=== PATIENT | male | born 1960 | race Caucasian/White ===

== ENCOUNTER 2020-07-27 14:50 | Outpatient (CLI) | payer MEDICARE, SELFPAY ==
[2020-07-27 15:30] VITALS: BMI 36.2
[2020-07-27 16:54] LABS: Microscopic, Urine URINE MICROSCOPIC (MICROSCOPIC)
[2020-07-27 17:04] LABS: Appearance,Urine CLEAR (Clear); Bilirubin,Urine Negative (Negative); Blood, Urine 1+ (Negative); Color,Urine YELLOW (Yellow); Glucose,Urine (UA) Negative (Negative); Ketones,Urine Negative (Negative); Leukocyte Esterase,Urine Negative (Negative); Nitrate,Urine Negative (Negative); PH,Urine 6.5 (5.0-8.5); Protein,Urine 1+ (Negative); Specific Gravity, Urine 1.025 (1.005-1.030)
[2020-07-27 17:09] LABS: Amorphous Sediment,Urine 1+ /lpf; Squamous Epithelial Cell,Urine Occasional #/hpf (0-5); WBC,Urine Occasional #/hpf (0-3)
[2020-07-27 17:12] LABS: Chloride 104 mmol/L (98-107); Potassium 4.2 mmoL/L (3.5-5.1); Sodium 140 mmol/L (136-145)
[2020-07-27 17:14] LABS: Basophils % 0.6 % (0.1-2.0); Blood Urea Nitrogen 12 mg/dl (9-20); Creatinine Clearance Estimated 129 mL/min (50-200); Eosinophils # 0.3 K/mm3 (0.0-0.4); Eosinophils % 4.3 % (0.1-12.0); Estimated Glomerular Filt Rate 98 ml/min (>60); GFR (African American) 119 ML/MIN (>60); Hematocrit 42.6 % (42.0-52.0); Lymphocytes # 1.5 K/mm3 (0.7-4.5); Lymphocytes % 22.8 % (10-50); Mean Corpuscular HGB Conc 32.9 g/dL (31.8-35.4); Mean Corpuscular Hemoglobin 28.3 pg (27.0-31.2); Monocytes # 0.4 K/mm3 (0.1-1.0); Monocytes % 5.9 % (1.7-9.3); Neutrophils # 4.3 K/mm3 (1.8-7.8); Neutrophils % 66.4 % (37.0-80.0); Platelet Count 145 K/mm3 (142-424); Red Blood Count 4.95 M/mm3 (4.60-6.20); Red Cell Distribution Width 17.8 % (11.5-17.5); White Blood Count 6.5 K/mm3 (4.8-10.8)
[2020-07-27 17:15] LABS: Alanine Aminotransferase 25 U/L (12-78); Albumin/Globulin Ratio 1.2 (1.1-1.8); Alkaline Phosphatase 118 U/L (38-126); Aspartate Amino Transferase 35 U/L (17-59); Bilirubin,Total 0.8 mg/dl (0.2-1.3); Calcium 9.1 mg/dl (8.4-10.2); Globulin 3.3 g/dL (1.3-3.2); Glucose 78 mg/dl (74-100); Total Protein,Serum 7.3 g/dl (6.3-8.2)
[2020-07-27 17:46] LABS: Thyroid Stimulating Hormone 0.51 uIU/mL (0.465-4.68)
[2020-07-27 22:35] LABS: Anion Gap 13.2 mEq/L (5-15); Carbon Dioxide 27 mmol/L (22.0-30.0)
== END 2020-07-27 16:00 | disposition home or self-care (01) ==
LOC: LAB 14:58
PROVIDERS: Visit Provider Family Medicine
DX: R60.9 Edema, unspecified (principal); R39.81 Functional urinary incontinence; R26.2 Difficulty in walking, not elsewhere classified
CPT/HCPCS: 80053; 81001; 84443; 85025

== ENCOUNTER 2020-10-19 13:00 | Emergency (ER) | payer MEDICARE, SELFPAY ==
[2020-10-19 13:00] VITALS: BP 156/105; PULSE 76; RESP 16; TEMP 36.8; O2SAT 94; BMI 38.0
--- NOTE | 2020-10-19 13:24 | XR_ITS ---
PROCEDURE: XR CHEST PORTABLE CLINICAL HISTORY: weakness COMPARISON: No exams were available for comparison FINDINGS: There is mild cardiomegaly without failure. Increased markings are present in the right lower lung zone suspicious for an area of infiltrate. No acute bony findings. There is an area of increased density in the left paraspinal region at T10-T11 and may represent a prominent osteophyte. IMPRESSION: Patchy right lower lobe infiltrate Dictated by: Sourav Blum MD 10/19/2020 15:37 Sourav Blum MD in [place] 10/19/2020 15:37
--- NOTE | 2020-10-19 13:26 | PC.NURSE ---
pt yelling at family in pt room and swearing at staff. pt asked to keep his voice down and redirected. pt stated i didnt even want to come here i just wanted to be helped in my car by EMS but they brought me here
[2020-10-19 13:33] LABS: Basophils % 0.4 % (0.1-2.0); Eosinophils # 0.3 K/mm3 (0.0-0.4); Eosinophils % 3.3 % (0.1-12.0); Hematocrit 45.2 % (42.0-52.0); Hemoglobin 14.6 g/dL (14.1-18.0); Lymphocytes # 1.2 K/mm3 (0.7-4.5); Lymphocytes % 16.3 % (10-50); Mean Corpuscular HGB Conc 32.2 g/dL (31.8-35.4); Mean Corpuscular Hemoglobin 29.3 pg (27.0-31.2); Monocytes # 0.4 K/mm3 (0.1-1.0); Monocytes % 4.9 % (1.7-9.3); Neutrophils # 5.7 K/mm3 (1.8-7.8); Platelet Count 185 K/mm3 (142-424); Red Blood Count 4.97 M/mm3 (4.60-6.20); Red Cell Distribution Width 17.4 % (11.5-17.5); White Blood Count 7.6 K/mm3 (4.8-10.8)
[2020-10-19 13:34] LABS: Chloride 103 mmol/L (98-107); Sodium 140 mmol/L (136-145)
--- NOTE | 2020-10-19 13:34 | HMH.EDGENADL ---
ED Disposition Clinical Impression: Weakness Disposition: Home, Self-Care Condition on Discharge: Fair Additional Instructions: Bactrim as prescribed. Follow-up with Dr. Azar in his office, call tomorrow to make appointment. He will continue to work on placement in a rehab facility. Follow-up urine culture results with Dr. Azar when you see him in the office. Prescriptions: Sulfamethoxazole/Trimethoprim [Bactrim DS tablet] 1 each PO BID #20 tab Transmission Status: Received by [facility] Referrals: Jeffrey Azar MD [Primary Care Provider] - - Critical Care Critical Care Time: No Attestation: On , the high probability of a clinically significant, sudden or life threatening deterioration of the following system(s) required my full and direct attention, intervention and personal management. The time I documented below is in addition to time spent performing reported procedures but includes the following listed in this critical care notation. Medical Decision Making - Medical Records Medical records reviewed: Yes: I reviewed the patient's medical records. MR Comment: Reviewed most recent office visit to Dr. Azar, detailing same complaints and symptoms at that time - Rene Inquiry Pt receiving controlled substance: No Vital Signs: 10/19/20 13:00 10/19/20 14:26 10/19/20 15:13 Temperature 98.2 F Temperature Source Oral Pulse Rate [Left Radial] 76 97 H 88 Respiratory Rate 16 Blood Pressure [Right Arm] 156/105 H 188/100 H 179/98 H Blood Pressure Mean [Right Arm] 122 129 125 Blood Pressure Source [Right Arm] Automatic Cuff Automatic Cuff Automatic Cuff Blood Pressure Position [Right Arm] Sitting Sitting Sitting 02 Sat by Pulse Oximetry 94 L 96 Oxygen Delivery Method Room Air Room Air - Lab Data Lab Results 10/19/20 13:16: WBC 7.6, RBC 4.97, Hgb 14.6, Hct 45.2, MCV 91.0, MCH 29.3, MCHC 32.2, RDW 17.4, Plt Count 185, MPV 8.0, Neut % (Auto) 75.0, Lymph % (Auto) 16.3, Colbert % (Auto) 4.9, Eos % (Auto) 3.3, Baso % (Auto) 0.4, Neut # (Auto) 5.7, Lymph # (Auto) 1.2, Colbert # (Auto) 0.4, Eos # (Auto) 0.3, Baso # (Auto) 0.0 10/19/20 13:16: Sodium 140, Potassium 3.5, Chloride 103, Carbon Dioxide 31 H, Anion Gap 9.5, BUN 12, Creatinine 0.90, Estimated Creat Clear 139, Estimated GFR 86, Est GFR ( Amer) 104, Glucose 101 H, Calcium 9.4, Total Bilirubin 0.7, AST 29, ALT 20, Alkaline Phosphatase 167 H, Troponin I < 0.01, Total Protein 8.0, Albumin 4.1, Globulin 3.9 H, Albumin/Globulin Ratio 1.1 10/19/20 15:01: Urine Color Yellow, Urine Appearance Cloudy, Urine pH 8.0, Ur Specific [place] 1.020, Urine Protein 2+, Urine Glucose (UA) Negative, Urine Ketones Negative, Urine Blood Negative, Urine Nitrate Positive, Urine Bilirubin Negative, Urine Urobilinogen >=8.0, Ur Leukocyte Esterase 1+ A, Urine RBC None, Urine WBC 20-50, Ur Squamous Epith Cells Occasional, Triple Phos Crystals 2+, Urine Bacteria 3+ Result diagrams: 10/19/20 13:16 10/19/20 13:16 Orders (Tests/Meds): ORDERS Category Date Time Status Urine Culture Stat Micro 10/19/20 15:01 Received - Physician Consults Physician Consulted: Dr. Azar Time: 14:07 Reason -: Pt condition Comment/Response: Have patient seen by care management, care management to text him after their evaluation. He would prefer the patient be admitted for placement, he has been pursuing this for some time. Additional Consult: Care sharif Bills Time: 14:48 Reason -: Pt condition Comment/Response: Seen by care management. The patient and are very selective about rehab facilities that they would approve. There are only 2 but they are interested in. 1 is not accepting new patients and she will not be able to obtain a decision from the other one today. She has spoken with Dr. Watkins. They recommend the patient be discharged home if he has no actionable findings on his work-up and they will pursue extended care facility placement as an outpatient. Additional Consult:
[2020-10-19 13:35] LABS: Potassium 3.5 mmoL/L (3.5-5.1)
[2020-10-19 13:37] LABS: Alanine Aminotransferase 20 U/L (12-78); Albumin Level 4.1 g/dl (3.5-5.0); Albumin/Globulin Ratio 1.1 (1.1-1.8); Alkaline Phosphatase 167 U/L (38-126); Anion Gap 9.5 mEq/L (5-15); Aspartate Amino Transferase 29 U/L (17-59); Bilirubin,Total 0.7 mg/dl (0.2-1.3); Blood Urea Nitrogen 12 mg/dl (9-20); Carbon Dioxide 31 mmol/L (22.0-30.0); Creatinine Clearance Estimated 139 mL/min (50-200); Estimated Glomerular Filt Rate 86 ml/min (>60); GFR (African American) 104 ML/MIN (>60); Globulin 3.9 g/dL (1.3-3.2)
[2020-10-19 13:38] LABS: Calcium 9.4 mg/dl (8.4-10.2); Glucose 101 mg/dl (74-100)
--- NOTE | 2020-10-19 13:43 | PC.NURSE ---
Pt is refusing to leave v/s monitors on at this time. Will get v/s as he allows it.
--- NOTE | 2020-10-19 13:43 | PC.NURSE ---
at bedside. Pt continues to yell and swear at this time
--- NOTE | 2020-10-19 13:44 | PC.NURSE ---
Attempted to do EKG multiple times with patient being non compliant.
--- NOTE | 2020-10-19 13:49 | PC.NURSE ---
speaking with Dr. Azar
[2020-10-19 13:52] LABS: Troponin I < 0.01 ng/ml (0.00-0.034)
--- NOTE | 2020-10-19 13:57 | PC.NURSE ---
helped pt turn on left side due to bed sore on buttocks according to patient.
--- NOTE | 2020-10-19 14:09 | PC.NURSE ---
attempted EKG, pt will not sit still and states that I am pissing him off .
--- NOTE | 2020-10-19 14:16 | PC.NURSE ---
director of casework services clint beltran at bedside
[2020-10-19 14:26] VITALS: BP 188/100; PULSE 97
--- NOTE | 2020-10-19 15:03 | SW/DCPLANNER ---
Addendum entered by Negar Racine 10/20/20 13:35: At this time the following facilities have denied this patient: [facility] (no beds), [facility] and [facility] (no admissions), [facility] (no beds), and currently waiting to hear back from [facility]. Dominga at [facility] stated they can not accept this patient under [place] [facility] but would consider [facility]A pending. I did call and relay this to patient and he was quick to deny using profanity. I did inform patient that I would relay this to Dr Azar. Patient is no longer interested in placement at this time. Addendum entered by Negar Racine 10/19/20 16:17: Patient information has also been faxed to [facility]. Addendum entered by [facility] 10/19/20 15:49: [facility] is not able to accept at this time. I have left a voicemail with Admission Dept at [facility] (Genie [phone]), [facility] (Lesly Malik) and patient information has been faxed to Dominga at [facility]. I will continue to follow up with facilities tomorrow. Original Note: I was contacted by ED staff (CC) regarding discharge plans for this patient. Patient was brought in due to home situation and wanting placement. Once patient arrived I did speak with patient, and daughter regarding placement. and patient have both stated that patient is agreeable to placement but ONLY to [facility] and [facility]. Patient stated that he was recently discharged from [facility] and [facility] and this would be his last choice if other two could not accept. Racquel with [facility] stated they are not accepting admission at this time. I have spoke with Daisy at [facility] and she stated they have male beds available and would review referral. I will also speak with [facility] and [facility] if [facility] denies this patient. I did speak with Dr Azar regarding this patient. Dr Azar has stated that if patient does NOT have a medical reasoning to be admitted patient can discharge home until we hear back from placement. Patient and agree with plan of going home and I will follow up via phone tomorrow. Patient stated that he did feel safe returning home. I will continue to follow up with facilities and patient. patient phone numbers: [phone]
[2020-10-19 15:07] LABS: Microscopic, Urine URINE MICROSCOPIC (MICROSCOPIC)
[2020-10-19 15:09] LABS: Appearance,Urine CLOUDY (Clear); Bilirubin,Urine Negative (Negative); Blood, Urine Negative (Negative); Color,Urine YELLOW (Yellow); Glucose,Urine (UA) Negative (Negative); Ketones,Urine Negative (Negative); Leukocyte Esterase,Urine 1+ (Negative); Nitrate,Urine POSITIVE (Negative); Protein,Urine 2+ (Negative); Urobilinogen,Urine >=8.0 EU/dl (0.2)
[2020-10-19 15:13] VITALS: BP 179/98; PULSE 88; O2SAT 96
[2020-10-19 15:18] LABS: WBC,Urine 20-50 #/hpf (0-3)
[2020-10-19 15:19] LABS: Bacteria,Urine 3+ /lpf; Squamous Epithelial Cell,Urine Occasional #/hpf (0-5); Triple Phosphate Crystal,Urine 2+ /lpf
--- NOTE | 2020-10-19 16:26 | PC.NURSE ---
pt continues to cuss and use threatening language at staff and pt family. after multiple times of redirecting pt he continues to yell and disturb the rest of the ER. pt family sent out to the lobby and instructed they needed to stay out there until pt is discharged.
--- NOTE | 2020-10-19 16:56 | PC.NURSE ---
Pt moved to wheelchair with assistance from x3 staff. Pt taken to car and same x3 staff placed pt in the car upon discharge.
[2020-10-19 17:07] VITALS: BP 179/92; PULSE 88; RESP 16; TEMP 36.7; O2SAT 97
== END 2020-10-19 17:09 | disposition home or self-care (01) ==
PROVIDERS: Emergency Provider Emergency Medicine; PCP Family Medicine
DX: R53.83 Other fatigue (principal); M79.672 Pain in left foot; R39.81 Functional urinary incontinence; I87.8 Other specified disorders of veins; R60.9 Edema, unspecified; I50.9 Heart failure, unspecified; E78.5 Hyperlipidemia, unspecified; I10 Essential (primary) hypertension
CPT/HCPCS: 71045; 80053; 81001; 84484; 85025; 87086; 87088; 87186; 99283